=== PATIENT | female | born 1995 | race Caucasian/White ===

== ENCOUNTER 2017-07-24 22:45 | Emergency (ER) | payer OTHER ==
[~2017-07-24] VITALS: Ht 162.6 cm; Wt 68.0 kg
[~2017-07-24 22:45] MED LIST: ALBU90OI INH; ASCO500 PO; AZIT250 PO; BENZ100A PO; BIRTH CONTROL; CODGUAEL PO; CRUTCH2 XX; CRUTCH4 USE; CYCL10 PO; Cleocin HCl300 MG PO; Crutch1 EACH MISC; DOXY100 PO; FLUT110OIA IH; HYDACE5 PO; HYDPAM50 PO; IBUP600 PO; IBUP800 PO; METPRE4DP PO; NAPR500 PO; NAPR550 PO; NEOPOLHCSU AU; NICO21TP; Norco 5-325 Ta1 EACH PO; OXYACE5T PO; Percocet 5-3251 EACH PO; RXCLIN PO; TRAACE PO; Verotin-Gr Cap1 EACH; Verotin-Gr Cap1 EACH PO
== END 2017-07-25 00:26 | disposition left against medical advice (07) ==
LOC: ER 22:45
DX: Z53.21 Procedure and treatment not carried out due to patient leaving prior to being seen by health care provider (principal)

== ENCOUNTER 2017-09-13 09:55 | Emergency (ER) | payer OTHER ==
[~2017-09-13] VITALS: Ht 162.6 cm; Wt 63.5 kg
[2017-09-13] MEDS ORDERED: ALBU90OI INH (10:26)
[2017-09-13] MEDS ORDERED: SPACE CHAMBER1 EACH INH (11:12)
[2017-09-13] MEDS ORDERED: Prednisone20 MG PO (11:12)
[2017-09-15] MEDS ORDERED: PRED20 PO (09:24)
[2017-09-15] MEDS ORDERED: ALBU90OI INH (09:24)
== END 2017-09-13 11:43 | disposition home or self-care (01) ==
LOC: ER 09:55
DX: J45.901 Unspecified asthma with (acute) exacerbation (principal); F17.210 Nicotine dependence, cigarettes, uncomplicated; Z88.0 Allergy status to penicillin; Z88.8 Allergy status to other drugs, medicaments and biological substances; Z91.010 Allergy to peanuts; Z79.51 Long term (current) use of inhaled steroids
CPT/HCPCS: 71046; 94640; 94644

== ENCOUNTER 2018-04-23 03:11 | Emergency (ER) | payer OTHER ==
[~2018-04-23] VITALS: Ht 162.6 cm; Wt 68.3 kg
[~2018-04-23 03:11] MED LIST changes: +PRED20 PO; +Prednisone20 MG PO; +SPACE CHAMBER1 EACH INH
[2018-04-23] MEDS ORDERED: Triamcinolone A15 GM TOP (04:13)
== END 2018-04-23 05:03 | disposition home or self-care (01) ==
LOC: ER 03:11
DX: S20.211A Contusion of right front wall of thorax, initial encounter (principal); R21 Rash and other nonspecific skin eruption; J45.909 Unspecified asthma, uncomplicated; F17.210 Nicotine dependence, cigarettes, uncomplicated; Z88.0 Allergy status to penicillin; Z91.010 Allergy to peanuts; Z88.1 Allergy status to other antibiotic agents; Z79.899 Other long term (current) drug therapy; W10.9XXA Fall (on) (from) unspecified stairs and steps, initial encounter
CPT/HCPCS: 99282

== ENCOUNTER 2019-01-11 21:53 | Inpatient (IN) | payer OTHER ==
[~2019-01-11] VITALS: Ht 162.6 cm; Wt 65.8 kg
[~2019-01-11 21:53] MED LIST changes: +Triamcinolone A15 GM TOP
[2019-01-11 22:14] LABS: BASOPHILS ABSOLUTE AUTO 0.08 K/mm3 (0.00-0.23); BASOPHILS PERCENT AUTO 1 % (0-2); EOSINOPHILS ABSOLUTE AUTO 0.94 K/mm3 (0.00-0.68); EOSINOPHILS PERCENT AUTO 11 % (0-6); Hematocrit 47.9 % (33.0-51.0); Hemoglobin 15.4 g/dL (11.5-16.0); IMMATURE GRAN ABSOLUTE AUTO 0.03 K/mm3 (0.00-0.10); IMMATURE GRAN PERCENT AUTO 0 % (0-1); LYMPHOCYTES ABSOLUTE AUTO 1.75 K/mm3 (0.84-5.20); LYMPHOCYTES PERCENT AUTO 21 % (21-46); MONOCYTES PERCENT AUTO 6 % (4-13); Mean Corpuscular HGB 31.8 pg (26.0-34.0); Mean Corpuscular HGB Conc 32.2 g/dL (31.5-36.5); Mean Corpuscular Volume 99 fL (80-100); Mean Platelet Volume 9.8 fL (9.1-12.4); NEUTROPHILS PERCENT AUTO 61 % (41-73); Platelet Count 255 K/mm3 (150-400); RDW Coefficient Variation 12.8 % (11.7-14.2); RDW Standard Deviation 46.9 fL (35.1-46.3); Red Blood Cell Count 4.84 M/mm3 (3.80-5.20)
[2019-01-11 22:32] LABS: Alanine Aminotransfer (ALT/SGP 24 U/L (12-78); Albumin, Blood 4.4 g/dL (3.4-5.0); Albumin/Globulin Ratio 1.2 (0.8-1.8); Alk Phos 75 U/L (50-136); Anion Gap 6 mmol/L (6-16); Aspartate Aminotrans (AST/SGOT 36 U/L (12-37); Bilirubin, Total 0.3 mg/dL (0.1-1.0); Blood Urea Nitrogen 8 mg/dL (8-24); Bun/Creatinine Ratio 10.1 (12.0-20.0); CO2, Blood 25 mmol/L (21-32); Calcium, Blood 9.6 mg/dL (8.5-10.1); Chloride, Blood 110 mmol/L (98-108); Creatinine, Blood 0.79 mg/dL (0.40-1.00); Globulin, Blood 3.7 g/dL (2.2-4.0); Glomerular Filtration Rate >60 (60-); Glucose, Blood 80 mg/dL (70-99); Potassium, Blood 4.2 mmol/L (3.5-5.5); Sodium, Blood 141 mmol/L (136-145); Total Protein, Blood 8.1 g/dL (6.4-8.2)
[2019-01-11] MEDS ORDERED: Prednisone20 MG PO (22:52)
--- NOTE | 2019-01-12 02:26 | NUR ---
ADMIT ASSESSMENT PT ARRIVED TO UNIT VIA GURNEY. SHE WAS ABLE TO STAND AND TRANSFER TO ICU BED WITH NO ISSUES. NO SOB NOTED WITH THIS ACTIVITY. PT DENIES PAIN OR DISCOMFORT. STATES SHE OVERALL FEELS GOOD, A BIT ANXIOUS FROM THE NEBULIZER TREATMENTS. LUNGS HAVE INSPIRATORY AND EXPIRATORY WHEEZING T/O TO AUSCULTATION. PT IS ON 4-5 LITERS NC. WILL CON'T TO ASSESS HER OXYGEN NEEDS. PT DOES COUGH OCCASSIONALLY. PT WAS ABLE TO GIVE A HEALTH HISTORY WITH NO PROBLEMS. OVERALL BENIGN ASSESSMENT OF PT. IV TO LEFT AC IS SL AT THIS TIME. PT DID REFUSE HER LOVENOX AND FLU SHOTS. VSS. WILL CON'T TO MONITOR PT AND KEEP SAFE T/O SHIFT. CALL LIGHT IS WITH IN REACH.
--- NOTE | 2019-01-12 06:15 | NUR ---
SHIFT SUMMARY PT HAS BEEN STABLE T/O SHIFT. SHE HAS BEEN RESTING OFF AND ON. HER COUGHING SEEMED TO LESSEN THIS AM. OXYGEN SATS ARE HOLDING WITH 4L N/C. NO CHANGES TO HER LUNG QUALITY. VITALS CON'T TO BE STABLE. BOYFRIEND ASLEEP AT BEDSIDE. WILL CON'T TO MONITOR PT TILL REPORT TO DAY SHIFT RN.
--- NOTE | 2019-01-12 07:45 | NUR ---
ASSUMED CARE RECEIVED REPORT FROM NIGHT RN. PT IS ALERT AND ORIENTED X 4. SHE IS ON 4L NC, AND SAT'ING 94%. STABLE VITALS. BED IS LOW AND LOCKED. CALL LIGHT WITHIN REACH.
--- NOTE | 2019-01-12 17:32 | NUR ---
PATIENT LEFT AMA. SHE COMPLAINED OF NEEDING TO BE HOME FOR HER KIDS, AND THAT SHE WOULDN'T HAVE A RIDE IN THE MORNING TOMORROW. SHE SAID SHE WILL FOLLOW UP WITH HER PCP (DR FUENTES) TOMORROW. SHE WAS INFORMED OF THE RISKS OF LEAVING AND THE BENEFITS OF STAYING (ALL LISTED IN THE AMA PAPERWORK IN THE CHART). VITALS WERE STABLE, SHE WAS ON ROOM AIR SAT'ING IN THE LOW 90'S.
== END 2019-01-12 17:32 | disposition left against medical advice (07) | DRG 189 ==
LOC: ER 21:53 → ICUE 01-12 00:32 → ICUW 01-12 00:32 → ICUE 01-12 01:36
PROVIDERS: Physician Assistant; ADMIT Family Medicine
DX: J96.01 Acute respiratory failure with hypoxia (principal); J45.901 Unspecified asthma with (acute) exacerbation; R00.0 Tachycardia, unspecified; F17.210 Nicotine dependence, cigarettes, uncomplicated; Z79.51 Long term (current) use of inhaled steroids
CPT/HCPCS: 36415; 71045; 80053; 85025; 94640; 94644; 94645; 96365; 96375; 99285-25; A9270; J2405; J2930; J3475; J7030

== ENCOUNTER 2021-03-04 11:34 | Emergency (ER) | payer OTHER ==
[~2021-03-04] VITALS: Ht 162.6 cm; Wt 77.1 kg
[~2021-03-04 11:34] MED LIST changes: +CEFD300 PO; +MONT10T PO
[2021-03-04] MEDS ORDERED: QVAR REDIHALE10.6 G3 INH (11:39)
[2021-03-04] MEDS ORDERED: CRUTCH4 XX (12:44)
== END 2021-03-04 13:06 | disposition home or self-care (01) ==
LOC: ER 11:34
DX: S93.602A Unspecified sprain of left foot, initial encounter (principal); X58.XXXA Exposure to other specified factors, initial encounter; Z88.0 Allergy status to penicillin; Z91.010 Allergy to peanuts; Z88.8 Allergy status to other drugs, medicaments and biological substances; Z79.899 Other long term (current) drug therapy; J45.909 Unspecified asthma, uncomplicated
CPT/HCPCS: 29515; 73630; 99283-25